=== PATIENT | male | born 1985 | race Caucasian/White ===

== ENCOUNTER 2021-01-18 09:05 | Emergency (ER) | payer SELFPAY ==
[2021-01-18] MEDS ORDERED: MEDROL 4MG DOSEP4 MG PO (09:48)
== END 2021-01-18 10:17 | disposition home or self-care (01) ==
LOC: FER 09:05
DX: G58.8 Other specified mononeuropathies (principal); F17.210 Nicotine dependence, cigarettes, uncomplicated; Z88.0 Allergy status to penicillin; Z88.8 Allergy status to other drugs, medicaments and biological substances
CPT/HCPCS: 99283